=== PATIENT | female | born 1945 | race Caucasian/White ===

== ENCOUNTER 2020-05-23 17:24 | Emergency (ER) | payer MEDICARE, OTHER ==
[~2020-05-23] VITALS: Ht 165.1 cm; Wt 79.4 kg
[2020-05-23] MEDS ORDERED: RX-ALBUTEROL INHALER (VENTOLIN HFA) 18 GM IH STA (17:43)
[2020-05-23] MEDS ORDERED: BENZONATATE 100 MG (TESSALON) CAPSULE PO SCH (17:45)
[2020-05-23 17:47] LABS: BASOPHILS % (AUTO) 0 % (0-10); EOSINOPHILS % (AUTO) 0 % (0-10); HEMATOCRIT 36 % (35-52); HEMOGLOBIN 12.2 G/DL (11.5-16.0); LYMPHOCYTES # (AUTO) 1.6 X 10^3 (1.0-4.0); LYMPHOCYTES % (AUTO) 43 % (12-44); MEAN CORPUSCULAR HEMOGLOBIN 30 PG (25-34); MEAN CORPUSCULAR HGB CONC 34 G/DL (32-36); MEAN CORPUSCULAR VOLUME 89 FL (80-99); MEAN PLATELET VOLUME 9.2 FL (7.4-10.4); MONOCYTES # (AUTO) 0.3 X 10^3 (0.0-1.0); MONOCYTES % (AUTO) 7 % (0-12); NEUTROPHILS # (AUTO) 1.8 X 10^3 (1.8-7.8); NEUTROPHILS % (AUTO) 49 % (42-75); PLATELET COUNT 173 10^3/uL (130-400); WHITE BLOOD COUNT 3.7 10^3/uL (4.3-11.0)
--- NOTE | 2020-05-23 17:54 | Diagnostic Imaging Report ---
INDICATION: Cough, shortness of breath, COVID positive. EXAMINATION: Chest 05/23/2020 FINDINGS: Two views of the chest. Scattered patchy airspace opacities noted, right greater than left, consistent with the history of COVID. Heart and pulmonary vasculature normal. No effusions. No pneumothorax. IMPRESSION: 1. Scattered bilateral infiltrates Dictated by: Dictated on workstation # [id number]
[2020-05-23 18:09] LABS: CHLORIDE 100 MMOL/L (98-107); SODIUM 133 MMOL/L (135-145)
[2020-05-23 18:10] LABS: ALANINE AMINOTRANSFERASE 21 U/L (0-55); ALBUMIN 4.1 GM/DL (3.2-4.5); ALKALINE PHOSPHATASE 103 U/L (40-136); BILIRUBIN,TOTAL 0.4 MG/DL (0.1-1.0); BUN/CREATININE RATIO 21; CALCIUM 8.2 MG/DL (8.5-10.1); CARBON DIOXIDE 21 MMOL/L (21-32); CREATININE SERUM 1.19 MG/DL (0.60-1.30); GFR ESTIMATED 44; GLUCOSE 104 MG/DL (70-105)
[2020-05-23] MEDS ORDERED: NS IV 1000 ML 1,000 ML IV SCH (18:30)
[2020-05-23] MEDS ORDERED: DOXYCYCLINE 100 MG (VIBRAMYCIN) TABLET ONE (18:33)
--- NOTE | 2020-05-23 18:39 | ED Cough/URI ---
General Chief Complaint: Respiratory Problems Stated Complaint: SOA,COUGH Nursing Triage Note: Patient reports she began experiencing sinus drainage, cough and shortness of breath on Tuesday. States she was tested for COVID on Tuesday d/t her having symptoms and both she and her tested positive. She reports she was feeling better yesterday, then woke up this morning with increased drainage, cough, and shortness of breath. She reports she has frequent sinus infections that are usually helped with a steroid injection. Sepsis Screen: No Definite Risk Source: patient Exam Limitations: no limitations History of Present Illness Date Seen by Provider: May 23, 2020 Time Seen by Provider: 17:45 Initial Comments Patient is a 75 year old female known COVID positive patient who presents with worsening shortness of breath, cough and sinus drainage over the past few days. Patient was diagnosed 6 days ago after both her and her spouse develop symptoms. Patient does not have history of COPD, asthma, chronic airway disease, congestive heart failure, CAD or valvular heart disease. Denies palpitations, chest pain other than with cough. Denies increased leg pain or swelling. Reports generalized fatigue malaise but denies fever chills and sweats. No nausea vomiting, abdominal pain. No diarrhea constipation. No other acute symptoms or complaints. Timing/Duration: week, getting worse Severity/Quality: moderate, sputum Prior Episodes/Possible Cause: illness exposure Modifying Factors: Improves With Activity, Improves With Rest Associated Symptoms: muscle aches, nasal congestion, shortness of breath, sinus infection Allergies and Home Medications Allergies Coded Allergies: Meperidine (Verified Allergy, Unknown, 01/24/06) Patient Home Medication List Home Medication List Reviewed: Yes Review of Systems Review of Systems Constitutional: see HPI EENTM: see HPI Respiratory: see HPI Cardiovascular: see HPI Gastrointestinal: see HPI Genitourinary: see HPI Musculoskeletal: see HPI Skin: see HPI Psychiatric/Neurological: See HPI Hematologic/Lymphatic: See HPI Past Ruknskq-Ltpwrw-Nnzvip Hx Past Med/Social Hx: Reviewed Nursing Past Med/Soc Hx Patient Social History Alcohol Use: Denies Use Recreational Drug Use: No Smoking Status: Never a Smoker 2nd Hand Smoke Exposure: No Recent Foreign Travel: No Contact w/Someone Who Travel: No Recent Infectious Disease Expo: No Recent Hopitalizations: No Physical Abuse: No Sexual Abuse: No Mistreated: No Fear: No Seasonal Allergies Seasonal Allergies: Yes Past Medical History Surgeries: Yes (thyroid surgery, knee scope) Coronary Stent Respiratory: Yes (DVT x 3) Pulmonary Embolism Cardiac: Yes Coronary Artery Disease, Heart Attack Neurological: No Genitourinary: No Gastrointestinal: No Musculoskeletal: No Endocrine: No HEENT: No Cancer: No Psychosocial: No Integumentary: No Physical Exam Vital Signs - First Documented 05/23/20 17:30 Temp 37.1 Pulse 89 Resp 17 B/P (MAP) 121/77 (92) Pulse Ox 98 O2 Delivery Room Air Capillary Refill : Less Than 3 Seconds Height: '" Weight: lbs. oz. kg; 29.00 BMI Method: General Appearance: WD/WN Eyes: Bilateral Eye Normal Inspection, Bilateral Eye PERRL, Bilateral Eye EOMI HEENT: PERRL/EOMI, normal ENT inspection, pharynx normal Neck: non-tender, full range of motion, supple Respiratory: chest non-tender; No normal breath sounds; no respiratory distress, no accessory muscle use; No decreased breath sounds; rhonchi Cardiovascular: normal peripheral pulses, regular rate, rhythm Gastrointestinal: non tender, soft Extremities: normal range of motion, non-tender Neurologic/Psychiatric: public weigher II-XII nml as tested, no motor/sensory deficits, alert, oriented x 3 Focused Exam Sepsis Stage: Ruled Out Lactate Level 05/23/20 17:40: Lactic Acid Level 1.58 Lactic Acid Level Laboratory Tests Test 05/23/20 17:40 Lactic Acid Level 1.58 MMOL/L (0.50-2.00) Progress/Results/Core Measures Suspected Sepsis Recent Fever Within 48 Hours: No Infection Criteria Present: Documented Infection New/Unexplained Altered Menta: No Sepsis Screen: No Definite Risk SIRS Temperature: Pulse: 89 Respiratory Rate: 17 Laboratory Tests 05/23/20 17:40: White Blood Count 3.7L Blood Pressure 121 /77 Mean: 92 05/23/20 17:40: Lactic Acid Level 1.58 Laboratory Tests 05/23/20 17:40: Creatinine 1.19, Platelet Count 173, Total Bilirubin 0.4 Results/Orders Lab Results Laboratory Tests Test 05/23/20 17:40 Range/Units White Blood Count 3.7 L 4.3-11.0 10^3/uL Red Blood Count 4.08 L 4.35-5.85 10^6/uL Hemoglobin 12.2 11.5-16.0 G/DL Hematocrit 36 35-52 % Mean Corpuscular Volume 89 80-99 FL Mean Corpuscular Hemoglobin 30 25-34 PG Mean Corpuscular Hemoglobin Concent 34 32-36 G/DL Red Cell Distribution Width 13.2 10.0-14.5 % Platelet Count 173 130-400 10^3/uL Mean Platelet Volume 9.2 7.4-10.4 FL Immature Granulocyte % (Auto) 0 % Neutrophils (%) (Auto) 49 42-75 % Lymphocytes (%) (Auto) 43 12-44 % Monocytes (%) (Auto) 7 0-12 % Eosinophils (%) (Auto) 0 0-10 % Basophils (%) (Auto) 0 0-10 % Neutrophils # (Auto) 1.8 1.8-7.8 X 10^3 Lymphocytes # (Auto) 1.6 1.0-4.0 X 10^3 Monocytes # (Auto) 0.3 0.0-1.0 X 10^3 Eosinophils # (Auto) 0.0 0.0-0.3 10^3/uL Basophils # (Auto) 0.0 0.0-0.1 10^3/uL Immature Granulocyte # (Auto) 0.0 0.0-0.1 10^3/uL Sodium Level 133 L 135-145 MMOL/L Potassium Level 4.0 3.6-5.0 MMOL/L Chloride Level 100 98-107 MMOL/L Carbon Dioxide Level 21 21-32 MMOL/L Anion Gap 12 5-14 MMOL/L Blood Urea Nitrogen 25 H 7-18 MG/DL Creatinine 1.19 0.60-1.30 MG/DL Estimat Glomerular Filtration Rate 44 BUN/Creatinine Ratio 21 Glucose Level 104 70-105 MG/DL Lactic Acid Level 1.58 0.50-2.00 MMOL/L Calcium Level 8.2 L 8.5-10.1 MG/DL Corrected Calcium 8.1 L 8.5-10.1 MG/DL Total Bilirubin 0.4 0.1-1.0 MG/DL Aspartate Amino Transf (AST/SGOT) 36 H 5-34 U/L Alanine Aminotransferase (ALT/SGPT) 21 0-55 U/L Alkaline Phosphatase 103 40-136 U/L Troponin I < 0.30 <0.30 NG/ML C-Reactive Protein 1.23 H <0.50 MG/DL Pro-B-Type Natriuretic Peptide 112.3 H <75.0 PG/ML Total Protein 7.0 6.4-8.2 GM/DL Albumin 4.1 3.2-4.5 GM/DL My Orders Orders - MIKEY SMITH DO Cbc With Automated Diff (05/23/20 17:28) Comprehensive Metabolic Panel (05/23/20 17:28) Chest 1 View Ap/Pa Only (05/23/20 17:28) Troponin I Fs (05/23/20 17:28) Probnp Fs (05/23/20 17:28) Lactic Acid Analyzer (05/23/20 17:28) Crp Fs (05/23/20 17:) Ekg Tracing (05/23/20 17:29) Rx-Albuterol Inhaler (Rx-Ventolin Hfa) (05/23/20 17:43) Benzonatate Capsule (Tessalon Perles) (05/23/20 17:45) Dexamethasone Injection (Decadron Inje (05/23/20 18:00) Ns Iv 1000 Ml (Sodium Chloride 0.9%) (05/23/20 18:30) Doxycycline Hyclate Tablet (Vibramycin T (05/24/20 07:00) Medications Given in ED Current Medications Medications Dose Ordered Sig/Olu Route Start Time Stop Time Status Last Admin Dose Admin Dexamethasone Sodium Phosphate 10 mg ONCE ONCE IV 05/23/20 18:00 05/23/20 18:01 DC 05/23/20 17:59 10 MG Vital Signs/I&O 05/23/20 17:30 Temp 37.1 Pulse 89 Resp 17 B/P (MAP) 121/77 (92) Pulse Ox 98 O2 Delivery Room Air Capillary Refill : Less Than 3 Seconds Blood Pressure Mean: 92 Departure Communication (Admissions) EKG: Sinus rhythm, no acute ST-T wave changes. Chest x-ray: Bilateral patchy infiltrates. Lab, imaging, and EKG reviewed. Patient's symptoms are consistent with COVID . Chest x-ray reveals bilateral infiltrates. Patient's nonrespiratory distress and is not hypoxic. Albuterol, Tessalon Perles and IV fluids given with significant improvement. Vital signs remained stable throughout ED encounter. Antibiotics prescribed. Will continue supportive chair with watchful waiting and close PCP f ollow-up. Return precautions reviewed. Patient verbalizes understanding and agreement discharge instructions prior to departure. Impression Primary Impression: COVID-19 Additional Impression: Acute infection of sinus Disposition: 01 HOME, SELF-CARE Condition: Stable Departure-Patient Inst. Decision time for Depature: 18:40 Patient Instructions: Coronavirus Disease 2019 (COVID-19) (DC), Sinusitis in Adults Add. Discharge Instructions: Please use albuterol inhaler as directed and take newly prescribed medications as prescribed. Monitor oxygen levels closely with use of retail digital pulse oximetry. Return to the ED for persistent oxygen levels lower than 90 worsening shortness of breath. Otherwise contact your PCP early next week for further directions regarding management. Return to the ED if new or worsening symptoms. All discharge instructions reviewed with patient and/or family. Voiced understanding. Scripts Doxycycline Hyclate (Doxycycline Hyclate) 100 Mg Tablet 100 MG PO BID, #20 TAB 0 Refills Prov: MIKEY SMITH DO 05/23/20 Benzonatate (TESSALON PERLES) 100 Mg Capsule 200 MG PO TID, #20 CAP Prov: MIKEY SMITH DO 05/23/20 MIKEY SMITH DO May 23, 2020 18:39
[2020-05-23] MEDS ORDERED: DOXY100T2 PO (18:42)
[2020-05-23] MEDS ORDERED: BENZ100C18 PO (18:42)
[2020-05-23 19:27] VITALS: BP 139/97
[2020-05-24] MEDS ORDERED: DOXYCYCLINE 100 MG (VIBRAMYCIN) TABLET PO SCH (07:00)
== END 2020-05-23 19:27 | disposition home or self-care (01) ==
LOC: EDUNIT# 17:24 → ER FS 17:25
DX: U07.1 COVID-19 (principal); J01.90 Acute sinusitis, unspecified; I25.2 Old myocardial infarction; Z95.5 Presence of coronary angioplasty implant and graft; Z88.5 Allergy status to narcotic agent
CPT/HCPCS: 36415; 71045; 80053; 83605; 83880; 84484; 85025; 86141; 93005; 96361; 96374

== ENCOUNTER 2020-05-25 19:21 | Inpatient (IN) | payer MEDICARE, OTHER ==
[~2020-05-25] VITALS: Ht 167 cm; Wt 78.9 kg
[~2020-05-25 19:21] MED LIST: BENZ100C18 PO; DOXY100T2 PO
[2020-05-25 19:54] LABS: BASOPHILS % (AUTO) 0 % (0-10); EOSINOPHILS % (AUTO) 0 % (0-10); HEMATOCRIT 37 % (35-52); HEMOGLOBIN 11.9 g/dL (11.5-16.0); LYMPHOCYTES # (AUTO) 0.7 10^3/uL (1.0-4.0); LYMPHOCYTES % (AUTO) 12 % (12-44); MEAN CORPUSCULAR HEMOGLOBIN 30 pg (25-34); MEAN CORPUSCULAR HGB CONC 32 g/dL (32-36); MEAN CORPUSCULAR VOLUME 92 fL (80-99); MEAN PLATELET VOLUME 9.2 fL (9.0-12.2); MONOCYTES # (AUTO) 0.4 10^3/uL (0.0-1.0); MONOCYTES % (AUTO) 7 % (0-12); NEUTROPHILS # (AUTO) 4.6 10^3/uL (1.8-7.8); NEUTROPHILS % (AUTO) 80 % (42-75); PLATELET COUNT 176 10^3/uL (130-400); WHITE BLOOD COUNT 5.7 10^3/uL (4.3-11.0)
[2020-05-25 20:00] LABS: INR 3.3 (0.8-1.4)
[2020-05-25] MEDS ORDERED: ACETAMINOPHEN 500 MG TAB (TYLENOL) PO ONE (20:00)
[2020-05-25] MEDS ORDERED: BENZONATATE 100 MG (TESSALON) CAPSULE PO ONE (20:00)
[2020-05-25] MEDS ORDERED: ONDANSETRON 4 MG/2 ML (SDV) Z0FRAN IVP ONE (20:00)
[2020-05-25 20:06] LABS: ALBUMIN 3.8 GM/DL (3.2-4.5); BILIRUBIN,TOTAL 0.6 MG/DL (0.1-1.0); CALCIUM 8.1 MG/DL (8.5-10.1); CREATININE SERUM 1.27 MG/DL (0.60-1.30); POTASSIUM 4.5 MMOL/L (3.6-5.0); TOTAL PROTEIN 6.8 GM/DL (6.4-8.2)
--- NOTE | 2020-05-25 20:26 | NUR ---
Patients daughter Danuta [phone]
--- NOTE | 2020-05-25 20:31 | NUR ---
Deyvi Ayala [phone] -Son
--- NOTE | 2020-05-25 20:37 | Diagnostic Imaging Report ---
INDICATION: Increasing shortness of breath. EXAMINATION: Portable erect AP chest at 8:24 p.m. FINDINGS: The heart size is within normal limits and stable when compared to 05/23/2020. The previous study did show faint scattered alveolar/interstitial infiltrates involving both lungs. On this study, there are areas of increased density in both lungs which do seem more prominent than on the prior exam. Most likely this is due to worsening pneumonia/atelectasis. There is still no significant pleural effusion identified. The mediastinum is not widened. The osseous structures are intact. IMPRESSION: The appearance of the chest has worsened since the prior study as there is greater involvement of both lungs by pneumonia/atelectasis. A follow up exam would be recommended for continued evaluation. Dictated by: Dictated on workstation # [id number]
--- NOTE | 2020-05-25 20:51 | ED General ---
General Chief Complaint: General Problems/Pain Stated Complaint: COVID/WEAKNESS/NAUSEA/DIARRHEA Nursing Triage Note: Patient tested positive for covid on 05/17/20. She states she was diagnosed with pneumonia in ft check on tuesday. Patient states since that time she has been feeling as though she is going to pass out and has been having diarrhea. She has been utilizing her husbands oxygen at home and states it helps her breathe better. She c/o of a headache and nausea at this time. Nursing Sepsis Screen: No Definite Risk Source of Information: Patient Exam Limitations: No Limitations History of Present Illness Date Seen by Provider: May 25, 2020 Time Seen by Provider: 19:25 Initial Comments This 75-year-old woman with COVID-19 presents to the emergency room with COVID- 19 symptoms for about 1 week. She has been struggling with nausea, diarrhea, weakness, dyspnea, and persistent cough. She is having a hard time getting by at home. Her just recently returned home from an admission at [facility] for COVID-19. She feels like she is just not making it at home. She has been using her 's oxygen at home because it improves her cough. She has not been hypoxic yet. She is presently on warfarin therapy because of "blood clots". She is febrile. Patient's son later mentioned she may have "passed out". He is uncertain if there was actual loss of consciousness. Allergies and Home Medications Allergies Coded Allergies: meperidine (Verified Allergy, Unknown, 01/24/06) Home Medications Benzonatate 100 Mg Capsule, 200 MG PO TID Prescribed by: MIKEY SMITH on 05/23/201841 Doxycycline Hyclate 100 Mg Tablet, 100 MG PO BID Prescribed by: MIKEY SMITH on 05/23/20 184 Patient Home Medication List Home Medication List Reviewed: Yes Review of Systems Review of Systems Constitutional: see HPI EENTM: other (Sinus congestion) Respiratory: see HPI Cardiovascular: no symptoms reported Gastrointestinal: see HPI Genitourinary: no symptoms reported : No Musculoskeletal: no symptoms reported Skin: no symptoms reported Psychiatric/Neurological: No Symptoms Reported Hematologic/Lymphatic: See HPI Immunological/Allergic: no symptoms reported Past Lbgvrfp-Yccvwc-Djazzf Hx Past Med/Social Hx: Reviewed Nursing Past Med/Soc Hx Patient Social History Alcohol Use: Denies Use Recreational Drug Use: No Smoking Status: Never a Smoker 2nd Hand Smoke Exposure: No Recent Foreign Travel: No Contact w/Someone Who Travel: No Recent Infectious Disease Expo: No Recent Hopitalizations: No Seasonal Allergies Seasonal Allergies: Yes Past Medical History Surgeries: Yes (thyroid surgery, knee scope) Coronary Stent Respiratory: Yes (DVT x 3) Pulmonary Embolism Cardiac: Yes Coronary Artery Disease, Deep Vein Thrombosis, Heart Attack Neurological: No Reproductive Disorders: No Genitourinary: No Gastrointestinal: No Musculoskeletal: No Endocrine: No HEENT: No Cancer: No Psychosocial: No Integumentary: No Physical Exam Vital Signs Vital Signs - First Documented 05/25/20 19:37 FiO2 100 Capillary Refill : Less Than 3 Seconds Height, Weight, BMI Height: '" Weight: lbs. oz. kg; 27.00 BMI Method: General Appearance: No Apparent Distress, WD/WN HEENT: PERRL/EOMI, Normal ENT Inspection Neck: Normal Inspection Respiratory: Lungs Clear, Normal Breath Sounds, No Accessory Muscle Use, No Respiratory Distress Cardiovascular: Regular Rate, Rhythm, No Edema, No Murmur Gastrointestinal: Normal Bowel Sounds, Non Tender, Soft Extremity: Normal Inspection, No Pedal Edema Neurologic/Psychiatric: Alert, Oriented x3, No Motor/Sensory Deficits, Normal Mood/Affect, graphite grinder II-XII Norm as Tested Skin: Normal Color, Warm/Dry Focused Exam Lactate Level 05/25/20 19:38: Lactic Acid Level 1.13 Lactic Acid Level Progress/Results/Core Measures Suspected Sepsis Recent Fever Within 48 Hours: Yes Infection Criteria Present: Documented Infection New/Unexplained Altered Menta: No Sepsis Screen: No Definite Risk SIRS Temperature: Pulse: 90 Respiratory Rate: 18 Laboratory Tests 05/25/20 19:38: White Blood Count 5.7 05/26/20 04:55: Blood Pressure 119 /74 Mean: 89 05/25/20 19:38: Lactic Acid Level 1.13 Laboratory Tests 05/25/20 19:38: Creatinine 1.27, INR Comment 3.3H, Platelet Count 176, Total Bilirubin 0.6 05/26/20 04:55: Results/Orders Lab Results Laboratory Tests Test 05/25/20 19:38 05/25/20 22:25 05/26/20 04:55 Range/Units White Blood Count 5.7 4.3-11.0 10^3/uL Red Blood Count 4.01 3.80-5.11 10^6/uL Hemoglobin 11.9 11.5-16.0 g/dL Hematocrit 37 35-52 % Mean Corpuscular Volume 92 80-99 fL Mean Corpuscular Hemoglobin 30 25-34 pg Mean Corpuscular Hemoglobin Concent 32 32-36 g/dL Red Cell Distribution Width 13.1 10.0-14.5 % Platelet Count 176 130-400 10^3/uL Mean Platelet Volume 9.2 9.0-12.2 fL Immature Granulocyte % (Auto) 0 % Neutrophils (%) (Auto) 80 H 42-75 % Lymphocytes (%) (Auto) 12 12-44 % Monocytes (%) (Auto) 7 0-12 % Eosinophils (%) (Auto) 0 0-10 % Basophils (%) (Auto) 0 0-10 % Neutrophils # (Auto) 4.6 1.8-7.8 10^3/uL Lymphocytes # (Auto) 0.7 L 1.0-4.0 10^3/uL Monocytes # (Auto) 0.4 0.0-1.0 10^3/uL Eosinophils # (Auto) 0.0 0.0-0.3 10^3/uL Basophils # (Auto) 0.0 0.0-0.1 10^3/uL Immature Granulocyte # (Auto) 0.0 0.0-0.1 10^3/uL Prothrombin Time 34.0 H 12.2-14.7 SEC INR Comment 3.3 H 0.8-1.4 Activated Partial Thromboplast Time 60 H 24-35 SEC Sodium Level 136 135-145 MMOL/L Potassium Level 4.5 3.6-5.0 MMOL/L Chloride Level 102 98-107 MMOL/L Carbon Dioxide Level 21 21-32 MMOL/L Anion Gap 13 5-14 MMOL/L Blood Urea Nitrogen 25 H 7-18 MG/DL Creatinine 1.27 0.60-1.30 MG/DL Estimat Glomerular Filtration Rate 41 BUN/Creatinine Ratio 20 Glucose Level 108 H 70-105 MG/DL Lactic Acid Level 1.13 0.50-2.00 MMOL/L Calcium Level 8.1 L 8.5-10.1 MG/DL Corrected Calcium 8.3 L 8.5-10.1 MG/DL Total Bilirubin 0.6 0.1-1.0 MG/DL Aspartate Amino Transf (AST/SGOT) 39 H 5-34 U/L Alanine Aminotransferase (ALT/SGPT) 25 0-55 U/L Alkaline Phosphatase 96 40-136 U/L Lactate Dehydrogenase 366 H 125-220 U/L C-Reactive Protein High Sensitivity 3.38 H 0.00-0.50 MG/DL Total Protein 6.8 6.4-8.2 GM/DL Albumin 3.8 3.2-4.5 GM/DL Procalcitonin 0.04 <0.10 NG/ML Urine Color YELLOW Urine Clarity SL CLOUDY Urine pH 5.5 5-9 Urine Specific [employer] 1.015 L 1.016-1.022 Urine Protein TRACE H NEGATIVE Urine Glucose (UA) NEGATIVE NEGATIVE Urine Ketones NEGATIVE NEGATIVE Urine Nitrite NEGATIVE NEGATIVE Urine Bilirubin NEGATIVE NEGATIVE Urine Urobilinogen 0.2 < = 1.0 MG/DL Urine Leukocyte Esterase NEGATIVE NEGATIVE Urine RBC (Auto) TRACE-I NEGATIVE Urine RBC 50-100 H /HPF Urine WBC 0-2 /HPF Urine Squamous Epithelial Cells 2-5 /HPF Urine Crystals NONE /LPF Urine Bacteria FEW H /HPF Urine Casts NONE /LPF Urine Mucus NEGATIVE /LPF Urine Culture Indicated NO Micro Results Microbiology 05/25/20 Influenza Types A,B Antigen (DOYLE) - Final, Complete My Orders Orders - PATEL CLIFFORD MD Acetaminophen Tablet (Tylenol Tablet) (05/25/20 20:00) Ondansetron Injection (Zofran Injectio (05/25/20 20:00) Benzonatate Capsule (Tessalon Perles) (05/25/20 20:00) Cbc With Automated Diff (05/25/20 19:48) Comprehensive Metabolic Panel (05/25/20 19:48) Blood Culture (05/25/20 19:48) Sputum Culture (05/25/20 19:48) Urinalysis (05/25/20 19:48) Urine Culture (05/25/20 19:48) Protime With Inr (05/25/20 19:48) Partial Thromboplastin Time (05/25/20 19:48) Chest 1 View, Ap/Pa Only (05/25/20 19:48) Ed Iv/Invasive Line Start (05/25/20 19:48) Ed Iv/Invasive Line Start (05/25/20 19:48) Vital Signs Adult Sepsis Patie Q15M (05/25/20 19:48) O2 (05/25/20 19:48) Remove Rings In Anticipation O (05/25/20 19:48) Lactic Acid Analyzer (05/25/20 19:48) Influenza A And B Antigens (05/25/20 19:48) Procalcitonin (Pct) (05/25/20 20:35) Hs C Reactive Protein (05/25/20 20:35) LDH (05/25/20 20:35) Dexamethasone Injection (Decadron Inje (05/25/20 21:15) Medications Given in ED Current Medications Medications Dose Ordered Sig/Olu Route Start Time Stop Time Status Last Admin Dose Admin Acetaminophen 1,000 mg ONCE ONCE PO 05/25/20 20:00 05/25/20 20:01 DC 05/25/20 20:05 1,000 MG Benzonatate 200 mg ONCE ONCE PO 05/25/20 20:00 05/25/20 20:01 DC 05/25/20 20:05 200 MG Dexamethasone Sodium Phosphate 6 mg ONCE ONCE IV 05/25/20 21:15 05/25/20 21:16 DC 05/25/20 22:09 6 MG Ondansetron HCl 8 mg ONCE ONCE IVP 05/25/20 20:00 05/25/20 20:01 DC 05/25/20 20:05 8 MG Vital Signs/I&O 05/25/20 05/25/20 05/25/20 05/25/20 19:37 19:37 19:37 20:05 Temp 38.7 38.7 38.7 Pulse 90 90 Resp 18 B/P (MAP) 119/74 (89) 119/74 Pulse Ox 98 98 98 O2 Delivery Nasal Cannula Nasal Cannula Nasal Cannula O2 Flow Rate 2.00 2.00 2.00 100.00 FiO2 100 05/25/20 05/25/20 05/25/20 05/25/20 22:10 22:33 22:42 22:49 Temp 38.7 37.0 37.0 Pulse 59 73 73 75 Resp 16 24 24 B/P (MAP) 108/66 (89) 124/55 124/55 (78) Pulse Ox 98 97 97 O2 Delivery Nasal Cannula Nasal Cannula Nasal Cannula O2 Flow Rate 2.00 2.00 2.00 2.00 05/25/20 05/25/20 23:20 23:46 Temp 36.8 Pulse 68 Resp 21 B/P (MAP) 106/53 (70) Pulse Ox 94 O2 Delivery Nasal Cannula Nasal Cannula O2 Flow Rate 2.00 2.00 05/26/20 00:00 Intake Total 200 ml Balance 200 ml Capillary Refill : Less Than 3 Seconds Blood Pressure Mean: 89 Progress Note : Progress Note Patient was treated with a liter of IV fluid as started by EMS. Tessalon Perles was given for cough. She was continued on 2 L nasal cannula for comfort and shortness of breath/cough. Zofran was given for nausea. Dexamethasone will be administered. CRP was low and pro calcitonin was normal. We will therefore not be treating with antibiotics. INR is slightly supratherapeutic. We will hold warfarin for tonight. I did discuss CODE STATUS with the patient. She has some uncertainty about this at this time. We will stay full code for admission orders until she makes a more definitive decision. ECG Initial ECG Impression Date: May 25, 2020 Diagnostic Imaging Diagonstic Imaging: Xray Plain Films/CT/US/NM/MRI: chest Comments Chest x-ray viewed by me and report reviewed. Compared with prior. See report below: NAME: THA ALEXANDER [facility] REC#: [id number] PT STATUS: REG ER : 1945 PHYSICIAN: PATEL CLIFFORD MD ADMIT DATE: 05/25/20/ER Draft Date of Exam:05/25/20 CHEST 1 VIEW, AP/PA ONLY INDICATION: Increasing shortness of breath. EXAMINATION: Portable erect AP chest at 8:24 p.m. FINDINGS: The heart size is within normal limits and stable when compared to 05/23/2020. The previous study did show faint scattered alveolar/interstitial infiltrates involving both lungs. On this study, there are areas of increased density in both lungs which do seem more prominent than on the prior exam. Most likely this is due to worsening pneumonia/atelectasis. There is still no significant pleural effusion identified. The mediastinum is not widened. The osseous structures are intact. IMPRESSION: The appearance of the chest has worsened since the prior study as there is greater involvement of both lungs by pneumonia/atelectasis. A follow up exam would be recommended for continued evaluation. Dictated on workstation # [id number] Dict: 05/25/202025 Trans: 05/25/202034 [id number] Interpreted by: LESTER PETERSON MD Departure Communication (Admissions) Time/Spoke to Admitting Phy: 21:00 Case was discussed with Dr. Preciado on behalf of Dr. Combs. Impression Primary Impression: COVID-19 Additional Impressions: Nausea Diarrhea Qualified Codes: R19.7 - Diarrhea, unspecified Dyspnea Qualified Codes: R06.00 - Dyspnea, unspecified Generalized weakness Disposition: ADMITTED INPATIENT Condition: Improved Admissions Decision to Admit Reason: Admit from ER (General) Decision to Admit/Date: May 25, 2020 Time/Decision to Admit Time: 19:35 Departure-Patient Inst. Referrals: TEETEE HOOKS MD (PCP/Family) Primary Care Physician PATEL CLIFFORD MD May 25, 2020 20:51
--- NOTE | 2020-05-25 22:25 | NUR ---
THA ALEXANDER admitted to room 422-1, with an admitting diagnosis of COVID 19, NAUSEA, DIARRHEA, DABILITY , on 05/25/20 from ED via , accompanied by STAFF. THA ALEXANDER introduced to surroundings, call light, bed controls, phone, TV, temperature control, lights, meal times, smoking policy, visitor policy, side rail policy, bathrooms and showers. Patient Rights given to patient in the handbook.THA ALEXANDER verbalizes understanding that [facility] is not responsible for the loss or damage to any personal effects or valuables that are kept in the patients posession during their hospitalization.
[2020-05-25 22:33] VITALS: BP 124/55
[2020-05-25 22:34] LABS: BILIRUBIN,URINE NEGATIVE (NEGATIVE); CLARITY,URINE SL CLOUDY; COLOR,URINE YELLOW; GLUCOSE, URINE (UA) NEGATIVE (NEGATIVE); KETONES,URINE NEGATIVE (NEGATIVE); LEUKOCYTE ESTERASE ,URINE NEGATIVE (NEGATIVE); NITRITE,URINE NEGATIVE (NEGATIVE); PH,URINE 5.5 (5-9); PROTEIN,URINE TRACE (NEGATIVE)
[2020-05-25] MEDS ORDERED: LACTATED RINGERS 1,000 ML IV ONE (22:38)
[2020-05-25 22:42] VITALS: BP 124/55
[2020-05-25 22:47] LABS: RBC,URINE 50-100 /HPF
[2020-05-25 22:48] LABS: BACTERIA,URINE FEW /HPF; WBC,URINE 0-2 /HPF
[2020-05-25] MEDS ORDERED: ONDANSETRON 4 MG/2 ML (SDV) Z0FRAN IVP PRN (23:00)
[2020-05-25] MEDS: LACTATED RINGERS 1,000 ML IV SCH (23:29)
[2020-05-25 23:46] VITALS: BP 106/53
[2020-05-26] VITALS (8 sets, daily range): BP systolic 112–172; BP diastolic 61–79
[2020-05-26 05:08] LABS: BASOPHILS % (AUTO) 0 % (0-10); EOSINOPHILS % (AUTO) 0 % (0-10); HEMATOCRIT 35 % (35-52); HEMOGLOBIN 11.2 g/dL (11.5-16.0); LYMPHOCYTES # (AUTO) 0.6 10^3/uL (1.0-4.0); LYMPHOCYTES % (AUTO) 17 % (12-44); MEAN CORPUSCULAR HEMOGLOBIN 30 pg (25-34); MEAN CORPUSCULAR HGB CONC 32 g/dL (32-36); MEAN CORPUSCULAR VOLUME 93 fL (80-99); MEAN PLATELET VOLUME 9.6 fL (9.0-12.2); MONOCYTES # (AUTO) 0.1 10^3/uL (0.0-1.0); MONOCYTES % (AUTO) 4 % (0-12); NEUTROPHILS # (AUTO) 2.6 10^3/uL (1.8-7.8); NEUTROPHILS % (AUTO) 79 % (42-75); PLATELET COUNT 158 10^3/uL (130-400); WHITE BLOOD COUNT 3.3 10^3/uL (4.3-11.0)
[2020-05-26 05:18] LABS: ALBUMIN 3.5 GM/DL (3.2-4.5); POTASSIUM 4.6 MMOL/L (3.6-5.0)
[2020-05-26 05:19] LABS: CALCIUM 7.7 MG/DL (8.5-10.1)
[2020-05-26 05:20] LABS: TOTAL PROTEIN 6.3 GM/DL (6.4-8.2)
[2020-05-26 05:22] LABS: BILIRUBIN,TOTAL 0.6 MG/DL (0.1-1.0)
[2020-05-26 05:24] LABS: CREATININE SERUM 1.13 MG/DL (0.60-1.30)
[2020-05-26 05:51] LABS: PROTHROMBIN TIME PATIENT 31.7 SEC (12.2-14.7)
[2020-05-26] MEDS: LACTATED RINGERS 1,000 ML IV SCH ×2 (06:49→15:43)
[2020-05-26] MEDS: ACETAMINOPHEN 500 MG TAB (TYLENOL) PO PRN (08:50)
[2020-05-26] MEDS: BENZONATATE 100 MG (TESSALON) CAPSULE PO PRN ×2 (08:51→20:58)
[2020-05-26] MEDS: ENOXAPARIN 40 MG/0.4 ML (LOVENOX) SYR SC SCH (08:53)
[2020-05-26] MEDS ORDERED: REMDESIVIR INJ 200 MG in NS (IVPB) 210 ML IV ONE ×2 (10:45→12:00)
[2020-05-26] MEDS ORDERED: REMDESIVIR INJ 100 MG in NS (IVPB) 230 ML IV SCH (10:45)
--- NOTE | 2020-05-26 10:58 | History & Physical-Hospitalist ---
History of Present Illness HPI/Chief Complaint CC: SOB HPI: This is a 75yoWF who presented with Covid symptoms for one week. Pt was found to be hypoxic with all the signs of Covid related issues so she was deemed stable for admission to the floor. Pt will be started on Remdesivir and convalescent plasma, along with Decadron and she will be monitored closely for any type of respiratory compromise. Date Seen 05/26/20 Time Seen by a Provider: 10:00 Attending Physician Anaid Combs Jay L MD Referring Physician Date of Admission May 25, 2020 at 21:38 Home Medications & Allergies Home Medications Reviewed patient Home Medication Reconciliation performed by pharmacy medication reconciliations visitor services technician and/or nursing. Patients Allergies have been reviewed. Allergies Allergies Coded Allergies meperidine (Verified Allergy, Unknown, 01/24/06) Past Whosrev-Kvoxfz-Rqyumb Hx Past Med/Social Hx: Reviewed Nursing Past Med/Soc Hx, Reviewed and Corrections made Patient Social History Marrital Status: Employed/Student: retired Alcohol Use: Denies Use Recreational Drug Use: No Smoking Status: Never a Smoker 2nd Hand Smoke Exposure: No Recent Foreign Travel: No Contact w/other who traveled: No Recent Hopitalizations: No Recent Infectious Disease Expo: Yes (COVID) Immunizations Up To Date Date of Influenza Vaccine: Apr 03, 2020 Seasonal Allergies Seasonal Allergies: Yes Past Medical History Surgeries: Coronary Stent Cardiac: Coronary Artery Disease, Deep Vein Thrombosis, Heart Attack Reproductive: No Family History Patient reports no known family medical history. Review of Systems Constitutional: see HPI, dizziness, malaise, weakness Respiratory: cough, dyspnea on exertion Physical Exam Physical Exam Vital Signs Vital Signs - First Documented 05/25/20 19:37 FiO2 100 Capillary Refill : Less Than 3 Seconds Height, Weight, BMI Height: '" Weight: lbs. oz. kg; 28.29 BMI Method: General Appearance: No Apparent Distress, Anxious Eyes: Right Eye Normal Inspection, Right Eye PERRL HEENT: PERRL/EOMI, Normal ENT Inspection, Pharynx Normal, Moist Mucous Me mbranes Neck: Full Range of Motion, Normal Inspection, Non Tender Respiratory: Chest Non Tender, Lungs Clear, Normal Breath Sounds, No Accessory Muscle Use, No Respiratory Distress Cardiovascular: Regular Rate, Rhythm, No Edema, No Gallop, No JVD, No Murmur, Normal Peripheral Pulses Gastrointestinal: Normal Bowel Sounds, No Organomegaly, No Pulsatile Mass, Non Tender, Soft Back: Normal Inspection, No CVA Tenderness, No Vertebral Tenderness Extremity: Normal Capillary Refill, Normal Inspection, Normal Range of Motion, Non Tender, No Calf Tenderness, No Pedal Edema Neurologic/Psychiatric: Alert, Oriented x3, No Motor/Sensory Deficits, Normal Mood/Affect Skin: Normal Color, Warm/Dry Lymphatic: No Adenopathy Results Results/Procedures Labs Laboratory Tests 05/25/20 19:38 05/26/20 04:55 Patient resulted labs reviewed. Assessment/Plan Admission Diagnosis Assessment: COVID-19 PNA Hypoxia CAD Previous DVT's Hypothyroidism Coumadin treatment now supratherapeutic Acute UTI Plan: COVID treatment O2 PPE use Monitor closely Monitor INR Rocephin for UTI empiric Admission Status: Inpatient Order (span 2 midnights) Reason for Inpatient Admission: COVID 19 Diagnosis/Problems Diagnosis/Problems (1) COVID-19 (2) UTI (urinary tract infection) (3) Warfarin anticoagulation (4) CAD (coronary artery disease) (5) Acquired hypothyroidism (6) Dyspnea Status: Acute Qualifiers: Dyspnea type: unspecified Qualified Codes: R06.00 - Dyspnea, unspecified (7) Generalized weakness Status: Acute (8) Diarrhea Qualifiers: Diarrhea type: unspecified type Qualified Codes: R19.7 - Diarrhea, unspecified (9) Debility Clinical Quality Measures DVT/VTE Risk/Contraindication: Risk Factor Score Per Nursin RFS Level Per Nursing on Admit: 4+=Very High ANAID COMBS DO May 26, 2020 10:58
[2020-05-26] MEDS ORDERED: LOSA25TA41 PO (14:57)
[2020-05-26] MEDS ORDERED: BENZ-36 PO (14:57)
[2020-05-26] MEDS ORDERED: [UNRECOGNIZED DRUG - CODE] PO (14:57)
[2020-05-26] MEDS ORDERED: OMG1KC PO (14:57)
[2020-05-26] MEDS ORDERED: WARF-48 PO (14:57)
[2020-05-26] MEDS ORDERED: LEVO75TA6 PO (14:57)
[2020-05-26] MEDS ORDERED: DOXY100T2 PO (14:58)
--- NOTE | 2020-05-26 15:14 | NUR ---
I SPOKE WITH THE PATIENT, XANDER IN [facility] AND WENT THROUGH THE EXTERNAL MED HISTORY TO COMPLETE THIS MED REC. NEW FILL DATES FROM [facility]: WARFARIN 5MG 04/28/2020#DS LEVOTHYROXINE 75MCH 05/02/2020 #DS OTC: TYLENOL SINUS FISH OIL
[2020-05-26] MEDS ORDERED: RT-ALBUTEROL INHALER HFA (VENTOLIN HFA) 18 GM IH PRN (17:30)
[2020-05-26] MEDS: RT-ALBUTEROL INHALER HFA (VENTOLIN HFA) 18 GM IH SCH (22:46)
[2020-05-27 00:21] VITALS: BP 142/58
[2020-05-27] MEDS: LACTATED RINGERS 1,000 ML IV SCH ×4 (01:27→23:00)
[2020-05-27] MEDS: RT-ALBUTEROL INHALER HFA (VENTOLIN HFA) 18 GM IH SCH ×4 (02:01→18:24)
[2020-05-27 03:34] VITALS: BP 140/65
[2020-05-27] MEDS: BENZONATATE 100 MG (TESSALON) CAPSULE PO PRN ×2 (05:26→20:45)
[2020-05-27 05:44] LABS: BASOPHILS % (AUTO) 0 % (0-10); EOSINOPHILS % (AUTO) 0 % (0-10); HEMATOCRIT 31 % (35-52); HEMOGLOBIN 10.5 g/dL (11.5-16.0); LYMPHOCYTES # (AUTO) 0.7 10^3/uL (1.0-4.0); LYMPHOCYTES % (AUTO) 11 % (12-44); MEAN CORPUSCULAR HEMOGLOBIN 30 pg (25-34); MEAN CORPUSCULAR HGB CONC 34 g/dL (32-36); MEAN CORPUSCULAR VOLUME 90 fL (80-99); MEAN PLATELET VOLUME 9.8 fL (9.0-12.2); MONOCYTES # (AUTO) 0.5 10^3/uL (0.0-1.0); MONOCYTES % (AUTO) 8 % (0-12); NEUTROPHILS # (AUTO) 5.1 10^3/uL (1.8-7.8); NEUTROPHILS % (AUTO) 81 % (42-75); PLATELET COUNT 204 10^3/uL (130-400); WHITE BLOOD COUNT 6.4 10^3/uL (4.3-11.0)
[2020-05-27 06:00] LABS: INR 2.8 (0.8-1.4); PROTHROMBIN TIME PATIENT 29.4 SEC (12.2-14.7)
[2020-05-27 06:01] LABS: ALBUMIN 3.3 GM/DL (3.2-4.5)
[2020-05-27 06:02] LABS: CALCIUM 7.8 MG/DL (8.5-10.1)
[2020-05-27 06:03] LABS: TOTAL PROTEIN 5.8 GM/DL (6.4-8.2)
[2020-05-27 06:05] LABS: BILIRUBIN,TOTAL 0.5 MG/DL (0.1-1.0)
[2020-05-27 06:07] LABS: CREATININE SERUM 0.91 MG/DL (0.60-1.30)
[2020-05-27] MEDS: cefTRIAXone FOR IV USE 1,000 MG in WATER (STERILE) FOR INJECTION 10 ML IV SCH (06:13)
[2020-05-27] MEDS: LEVOTHYROXINE 75 MCG (LEVOTHROID) TABLET PO SCH (06:43)
[2020-05-27 07:52] VITALS: BP 127/58
[2020-05-27] MEDS: LOSARTAN 25 MG (COZAAR) TAB PO SCH (09:33)
[2020-05-27] MEDS: ENOXAPARIN 40 MG/0.4 ML (LOVENOX) SYR SC SCH (09:34)
--- NOTE | 2020-05-27 10:36 | Progress Note - Hospitalist ---
Subjective HPI/CC On Admission Date Seen by Provider: May 27, 2020 Time Seen by Provider: 10:00 CC: SOB HPI: This is a 75yoWF who presented with Covid symptoms for one week. Pt was found to be hypoxic with all the signs of Covid related issues so she was deemed stable for admission to the floor. Pt will be started on Remdesivir and convalescent plasma, along with Decadron and she will be monitored closely for any type of respiratory compromise. Subjective/Events-last exam Pt doing a lot better In a shower right now with oxygen Bowels not moving very much after diarrhea so will start a stool softener Overall doing pretty well Labs remain stable Coumadin will be restarted of her home dose since her INR is 2.8 Tolerating Covid treatment Review of Systems General: Fatigue, Malaise Focused Exam Lactate Level 05/25/20 19:38: Lactic Acid Level 1.13 Objective Exam Vital Signs Vital Signs Date Time Temp Pulse Resp B/P (MAP) Pulse Ox O2 Delivery O2 Flow Rate FiO2 05/28/20 00:13 36.8 68 18 149/66 (93) 92 Nasal Cannula 2.00 05/26/20 17:08 28 Capillary Refill : Less Than 3 Seconds General Appearance: No Apparent Distress, WD/WN, Chronically ill Respiratory: Chest Non Tender, Lungs Clear, Normal Breath Sounds, No Accessory Muscle Use, No Respiratory Distress Cardiovascular: Regular Rate, Rhythm, No Edema, No Gallop, No JVD, No Murmur, Normal Peripheral Pulses Neurologic/Psychiatric: Alert, Oriented x3, No Motor/Sensory Deficits, Normal Mood/Affect Results/Procedures Lab Laboratory Tests 05/28/20 05:33 Patient resulted labs reviewed. Assessment/Plan Assessment and Plan Assess & Plan/Chief Complaint Assessment: COVID-19 PNA Coumadin treatment Hypothyroidism Plan: Continue aggressive treatment O2 Monitor closely Diagnosis/Problems Diagnosis/Problems (1) COVID-19 (2) UTI (urinary tract infection) (3) Warfarin anticoagulation (4) CAD (coronary artery disease) (5) Acquired hypothyroidism (6) Dyspnea Status: Acute Qualifiers: Dyspnea type: unspecified Qualified Codes: R06.00 - Dyspnea, unspecified (7) Generalized weakness Status: Acute (8) Diarrhea Qualifiers: Diarrhea type: unspecified type Qualified Codes: R19.7 - Diarrhea, unspecified (9) Debility Clinical Quality Measures DVT/VTE Risk/Contraindication: Risk Factor Score Per Nursin RFS Level Per Nursing on Admit: 4+=Very High CATRACHITO ARIAS DO May 27, 2020 10:36
[2020-05-27 11:25] VITALS: BP 161/77
[2020-05-27] MEDS ORDERED: REMDESIVIR INJ 100 MG in NS (IVPB) 230 ML IV SCH (11:30)
[2020-05-27] MEDS: REMDESIVIR INJ 100 MG in NS (IVPB) 230 ML IV SCH (12:30)
--- NOTE | 2020-05-27 13:57 | NUR ---
"RD ASSESSMENT PMHx: CAD; DVT; heart attack; PT INTERACTION: Note pt is currently in COVID isolation, per chart review. Note all diet information for nutrition assessment is per Kisha RN, or per chart review. Kisha states current appetite appears good. Note avg PO intake 50% x1d, per chart review. Kisha states no issues with nausea, vomiting, constipation, or diarrhea that she is aware of. Kisha states pt mentioned they had not had BM in a few days. Note pt not currently on bowel regimen per chart review. Note unable to determine recent wt hx, per chart review. ABNORMAL NUTRITION-RELATED LAB VALUES LOW: Ca 7.8; pro 5.8; HIGH: BUN 19; glu 131; Est. kcal needs: 3406-8649 kcal | 20-25 kcal/kg Est. Pro needs: 63-79 g Pro | 0.8-1.0 g Pro/kg PES STATEMENT: Inadequate oral intake (NI-2.1) related to loss of appetite as evidenced by chart review, communication with RN and avg PO intake 50% x1d. INTERVENTION: Continue with current diet order of Regular diet. Add Ensure Enlive (vary) with meals TID, for increased kcal intake. Provides 350 kcal and 20 g Pro per serving. Pt may benefit from bowel regimen if constipation persists. Will continue to follow and reassess as pt needs, intake, and status change. Patricia Riley, MS RD LD"
[2020-05-27 16:00] VITALS: BP 157/70
[2020-05-27] MEDS: warFARin 5 MG (COUMADIN) TAB PO SCH (20:43)
[2020-05-27] MEDS: DOCUSATE SODIUM 100 MG (COLACE) CAP PO SCH (20:44)
[2020-05-28 00:13] VITALS: BP 149/66
[2020-05-28] MEDS: ACETAMINOPHEN 500 MG TAB (TYLENOL) PO PRN (04:16)
[2020-05-28] MEDS: LACTATED RINGERS 1,000 ML IV SCH (04:19)
[2020-05-28] MEDS: cefTRIAXone FOR IV USE 1,000 MG in WATER (STERILE) FOR INJECTION 10 ML IV SCH (05:33)
[2020-05-28] MEDS: LEVOTHYROXINE 75 MCG (LEVOTHROID) TABLET PO SCH (05:33)
[2020-05-28 06:06] LABS: BASOPHILS % (AUTO) 0 % (0-10); EOSINOPHILS % (AUTO) 0 % (0-10); HEMATOCRIT 32 % (35-52); HEMOGLOBIN 10.5 g/dL (11.5-16.0); LYMPHOCYTES # (AUTO) 0.9 10^3/uL (1.0-4.0); LYMPHOCYTES % (AUTO) 12 % (12-44); MEAN CORPUSCULAR HEMOGLOBIN 30 pg (25-34); MEAN CORPUSCULAR HGB CONC 33 g/dL (32-36); MEAN CORPUSCULAR VOLUME 90 fL (80-99); MEAN PLATELET VOLUME 9.2 fL (9.0-12.2); MONOCYTES # (AUTO) 0.5 10^3/uL (0.0-1.0); MONOCYTES % (AUTO) 7 % (0-12); NEUTROPHILS # (AUTO) 5.8 10^3/uL (1.8-7.8); NEUTROPHILS % (AUTO) 81 % (42-75); PLATELET COUNT 234 10^3/uL (130-400); WHITE BLOOD COUNT 7.2 10^3/uL (4.3-11.0)
[2020-05-28 06:17] LABS: INR 2.8 (0.8-1.4); PROTHROMBIN TIME PATIENT 29.8 SEC (12.2-14.7)
[2020-05-28 06:19] LABS: ALBUMIN 3.1 GM/DL (3.2-4.5); BILIRUBIN,TOTAL 0.5 MG/DL (0.1-1.0); CALCIUM 7.9 MG/DL (8.5-10.1); CREATININE SERUM 0.99 MG/DL (0.60-1.30); POTASSIUM 4.2 MMOL/L (3.6-5.0); TOTAL PROTEIN 5.7 GM/DL (6.4-8.2)
--- NOTE | 2020-05-28 07:12 | Progress Note - Hospitalist ---
Subjective HPI/CC On Admission Date Seen by Provider: May 28, 2020 Time Seen by Provider: 10:30 CC: SOB HPI: This is a 75yoWF who presented with Covid symptoms for one week. Pt was found to be hypoxic with all the signs of Covid related issues so she was deemed stable for admission to the floor. Pt will be started on Remdesivir and convalescent plasma, along with Decadron and she will be monitored closely for any type of respiratory compromise. Subjective/Events-last exam Pt doing pretty well except for left lower quadrant abdominal pain Gave her a laxative of which she requested because she thinks it might be due to constipation Consulted Dr. Rudd in case this is some sort of colon issue INR 2.8 Overall doing pretty well Tolerating Remdesivir for Covid-19 treatment Remains on O2 Review of Systems General: Fatigue, Malaise Pulmonary: Dyspnea Gastrointestinal: Abdominal Pain Focused Exam Lactate Level Objective Exam Vital Signs Vital Signs Date Time Temp Pulse Resp B/P (MAP) Pulse Ox O2 Delivery O2 Flow Rate FiO2 05/29/20 02:40 Room Air 05/28/20 23:54 36.8 69 20 136/65 (88) 93 2.00 05/28/20 08:00 100 Capillary Refill : Less Than 3 Seconds General Appearance: No Apparent Distress, WD/WN, Chronically ill Respiratory: Chest Non Tender, Normal Breath Sounds, No Respiratory Distress, Accessory Muscle Use, Decreased Breath Sounds Cardiovascular: Regular Rate, Rhythm, No Edema, No Gallop, No JVD, No Murmur, Normal Peripheral Pulses Gastrointestinal: Tenderness (LLQ) Neurologic/Psychiatric: Alert, Oriented x3, No Motor/Sensory Deficits, Normal Mood/Affect Results/Procedures Lab Laboratory Tests 05/28/20 05:33 05/29/20 04:00 Patient resulted labs reviewed. Assessment/Plan Assessment and Plan Assess & Plan/Chief Complaint Assessment: COVID-19 PNA Coumadin treatment Hypothyroidism Plan: Continue aggressive treatment O2 Monitor closely 05/28/20: Monitor LLQ abdominal pain Consult Dr Rudd Maintain O2 COVID treatment tolerated Diagnosis/Problems Diagnosis/Problems (1) COVID-19 (2) UTI (urinary tract infection) (3) Warfarin anticoagulation (4) CAD (coronary artery disease) (5) Acquired hypothyroidism (6) Dyspnea Status: Acute Qualifiers: Dyspnea type: unspecified Qualified Codes: R06.00 - Dyspnea, unspecified (7) Generalized weakness Status: Acute (8) Diarrhea Qualifiers: Diarrhea type: unspecified type Qualified Codes: R19.7 - Diarrhea, unspecified (9) Debility Clinical Quality Measures DVT/VTE Risk/Contraindication: Risk Factor Score Per Nursin RFS Level Per Nursing on Admit: 4+=Very High CATRACHITO ARIAS DO May 28, 2020 07:12
[2020-05-28] MEDS: ENOXAPARIN 40 MG/0.4 ML (LOVENOX) SYR SC SCH (08:02)
[2020-05-28] MEDS: DOCUSATE SODIUM 100 MG (COLACE) CAP PO SCH (08:02)
[2020-05-28] MEDS: LOSARTAN 25 MG (COZAAR) TAB PO SCH (08:03)
[2020-05-28 08:25] VITALS: BP 129/75
[2020-05-28] MEDS: RT-ALBUTEROL INHALER HFA (VENTOLIN HFA) 18 GM IH SCH ×3 (09:53→20:49)
[2020-05-28] MEDS ORDERED: polyethylene glycoL POWDER 17 GM (MIRALAX) PACK PO PRN (10:00)
[2020-05-28] MEDS: REMDESIVIR INJ 100 MG in NS (IVPB) 230 ML IV SCH (13:08)
[2020-05-28 16:23] VITALS: BP 135/66
[2020-05-28] MEDS: MAGNESIUM CITRATE 300 ML BTL PO SCH ×2 (18:23→20:57)
--- NOTE | 2020-05-28 19:13 | CONSULTATION REPORT ---
DATE OF SERVICE: 05/28/2020 ADMITTING PHYSICIAN: Dr. Combs. HISTORY OF PRESENT ILLNESS: The patient is a 75-year-old female who presented with shortness of breath as well as mild fever and was found to be coronavirus-19 positive. She was admitted and I given adequate medical treatment and states that she has improved dramatically. She does report that she did develop some mild pain in the left lower abdominal quadrant. She also reports that she has not had a bowel movement in 4 days that she normally has a bowel movement on a daily basis. Upon examination, she does have mild discomfort in the left lower abdominal quadrant with no peritoneal signs and no hernias. This likely represents constipation. PAST MEDICAL HISTORY: Hypothyroid, hypertension, coronary artery disease, hypercholesterolemia. PAST SURGICAL HISTORY: Thyroidectomy for benign disease, knee arthroscopy, cardiac catheterization and stent placement. ALLERGIES: No known drug allergies. MEDICATION: See medication reconciliation. SOCIAL HISTORY: Negative smoke, negative alcohol. FAMILY HISTORY: Noncontributory. VITAL SIGNS: Stable, afebrile. REVIEW OF SYSTEMS: Well-nourished female, in no acute distress. She is not experiencing any shortness of breath or difficulty breathing. No chest pain, palpitations or diaphoresis. No nausea, vomiting with obstipation for the past 4 days with mild left lower abdominal quadrant pain. No peritonitis. No hernias. No fever, chills, no recent inadvertent weight loss. All other review of systems negative. PHYSICAL EXAMINATION: CHEST: Few scattered rales bilaterally. HEART: Regular, no murmurs. EXTREMITIES: No lower extremity edema, negative Homans sign. HEENT: No scleral icterus. NECK: No cervical lymphadenopathy. ABDOMEN: Soft, nondistended. There is pain in the left lower abdominal quadrant on deep palpation. There are no peritoneal signs. No hernias palpable. SKIN: Warm, dry. ASSESSMENT AND PLAN: A 75-year-old female with coronavirus-19 acute lung injury, who has responded well to medical therapy. During this process, she has not had a bowel movement for four days and normally has a bowel movement on a daily basis. For this, we will proceed with a magnesium citrate 150 mg b.i.d. until she has significant bowel movement. She has also never had a colonoscopy up to this point in her life and later on as an outpatient due to this episode of mild diverticulitis versus a fecal impaction as well as absence from colonoscopy in her lifetime and her age, we will recommend a followup colonoscopy. Job ID: [id number] DocumentID: [id number] Dictated Date: 05/28/2020 15:09:18 Him Clerk Date: 05/28/2020 19:11:44 Dictated By: ALICIA VERDIN MD
[2020-05-28] MEDS: SENNA W/DOCUSATE (SENOKOT S) TABLET PO SCH (20:55)
[2020-05-28] MEDS: warFARin 5 MG (COUMADIN) TAB PO SCH (20:55)
[2020-05-28] MEDS: polyethylene glycoL POWDER 17 GM (MIRALAX) PACK PO SCH (20:55)
[2020-05-28 23:54] VITALS: BP 136/65
[2020-05-29] MEDS: RT-ALBUTEROL INHALER HFA (VENTOLIN HFA) 18 GM IH SCH ×4 (02:40→19:03)
[2020-05-29 04:58] LABS: BASOPHILS % (AUTO) 0 % (0-10); EOSINOPHILS % (AUTO) 0 % (0-10); HEMATOCRIT 34 % (35-52); HEMOGLOBIN 10.8 g/dL (11.5-16.0); LYMPHOCYTES # (AUTO) 1.2 10^3/uL (1.0-4.0); LYMPHOCYTES % (AUTO) 15 % (12-44); MEAN CORPUSCULAR HEMOGLOBIN 29 pg (25-34); MEAN CORPUSCULAR HGB CONC 32 g/dL (32-36); MEAN CORPUSCULAR VOLUME 91 fL (80-99); MEAN PLATELET VOLUME 9.3 fL (9.0-12.2); MONOCYTES # (AUTO) 0.5 10^3/uL (0.0-1.0); MONOCYTES % (AUTO) 6 % (0-12); NEUTROPHILS # (AUTO) 6.5 10^3/uL (1.8-7.8); NEUTROPHILS % (AUTO) 79 % (42-75); PLATELET COUNT 248 10^3/uL (130-400); WHITE BLOOD COUNT 8.3 10^3/uL (4.3-11.0)
[2020-05-29 05:26] LABS: ALBUMIN 3.3 GM/DL (3.2-4.5); POTASSIUM 3.9 MMOL/L (3.6-5.0)
[2020-05-29 05:27] LABS: CALCIUM 7.7 MG/DL (8.5-10.1)
[2020-05-29 05:29] LABS: TOTAL PROTEIN 5.9 GM/DL (6.4-8.2)
[2020-05-29 05:31] LABS: BILIRUBIN,TOTAL 0.6 MG/DL (0.1-1.0)
[2020-05-29 05:32] LABS: CREATININE SERUM 1.02 MG/DL (0.60-1.30)
[2020-05-29] MEDS: cefTRIAXone FOR IV USE 1,000 MG in WATER (STERILE) FOR INJECTION 10 ML IV SCH (05:54)
[2020-05-29] MEDS: LEVOTHYROXINE 75 MCG (LEVOTHROID) TABLET PO SCH (05:54)
--- NOTE | 2020-05-29 06:05 | Progress Note - Hospitalist ---
Subjective HPI/CC On Admission Date Seen by Provider: May 29, 2020 Time Seen by Provider: 11:00 CC: SOB HPI: This is a 75yoWF who presented with Covid symptoms for one week. Pt was found to be hypoxic with all the signs of Covid related issues so she was deemed stable for admission to the floor. Pt will be started on Remdesivir and convalescent plasma, along with Decadron and she will be monitored closely for any type of respiratory compromise. Subjective/Events-last exam Patient had a large BM after Mag Citrate and now having 10 loose stools Weak from loose stools O2 maintained Has home O2 at home anyway as her has it too INR 3.1 No med changes Review of Systems General: Fatigue, Malaise Pulmonary: Dyspnea Gastrointestinal: Diarrhea Objective Exam Vital Signs Vital Signs Date Time Temp Pulse Resp B/P (MAP) Pulse Ox O2 Delivery O2 Flow Rate FiO2 05/29/20 19:03 94 Nasal Cannula 2.00 05/29/20 16:20 36.1 77 17 115/55 (75) 05/28/20 08:00 100 Capillary Refill : Less Than 3 Seconds General Appearance: No Apparent Distress, WD/WN, Chronically ill Respiratory: Chest Non Tender, Lungs Clear, Normal Breath Sounds, No Accessory Muscle Use, No Respiratory Distress Cardiovascular: Regular Rate, Rhythm, No Edema, No Gallop, No JVD, No Murmur, Normal Peripheral Pulses Neurologic/Psychiatric: Alert, Oriented x3, No Motor/Sensory Deficits, Normal Mood/Affect Results/Procedures Lab Laboratory Tests 05/29/20 04:00 Patient resulted labs reviewed. Assessment/Plan Assessment and Plan Assess & Plan/Chief Complaint Assessment: COVID-19 PNA Coumadin treatment Hypothyroidism Plan: Continue aggressive treatment O2 Monitor closely 05/28/20: Monitor LLQ abdominal pain Consult Dr Rudd Maintain O2 COVID treatment tolerated 05/29/20: BM regimen successful Monitor labs O2 wean Diagnosis/Problems Diagnosis/Problems (1) COVID-19 (2) UTI (urinary tract infection) (3) Warfarin anticoagulation (4) CAD (coronary artery disease) (5) Acquired hypothyroidism (6) Dyspnea Status: Acute Qualifiers: Dyspnea type: unspecified Qualified Codes: R06.00 - Dyspnea, unspecified (7) Generalized weakness Status: Acute (8) Diarrhea Qualifiers: Diarrhea type: unspecified type Qualified Codes: R19.7 - Diarrhea, unspecified (9) Debility Clinical Quality Measures DVT/VTE Risk/Contraindication: Risk Factor Score Per Nursin RFS Level Per Nursing on Admit: 4+=Very High CATRACHITO ARIAS DO May 29, 2020 06:05
[2020-05-29 07:09] LABS: INR 3.1 (0.8-1.4); PROTHROMBIN TIME PATIENT 32.3 SEC (12.2-14.7)
[2020-05-29 07:50] VITALS: BP 115/88
[2020-05-29] MEDS: LOSARTAN 25 MG (COZAAR) TAB PO SCH (09:00)
[2020-05-29] MEDS: MAGNESIUM CITRATE 300 ML BTL PO SCH ×2 (09:00→19:31)
[2020-05-29] MEDS: SENNA W/DOCUSATE (SENOKOT S) TABLET PO SCH ×2 (09:01→19:31)
[2020-05-29] MEDS: polyethylene glycoL POWDER 17 GM (MIRALAX) PACK PO SCH ×2 (09:01→19:31)
[2020-05-29] MEDS: REMDESIVIR INJ 100 MG in NS (IVPB) 230 ML IV SCH (11:38)
[2020-05-29 16:20] VITALS: BP 115/55
[2020-05-29] MEDS: warFARin 5 MG (COUMADIN) TAB PO SCH (19:31)
[2020-05-29 23:38] VITALS: BP 133/62
[2020-05-30] MEDS: RT-ALBUTEROL INHALER HFA (VENTOLIN HFA) 18 GM IH SCH ×4 (02:31→22:16)
[2020-05-30] MEDS: cefTRIAXone FOR IV USE 1,000 MG in WATER (STERILE) FOR INJECTION 10 ML IV SCH (05:17)
[2020-05-30] MEDS: LEVOTHYROXINE 75 MCG (LEVOTHROID) TABLET PO SCH (05:17)
[2020-05-30 05:47] LABS: BASOPHILS % (AUTO) 0 % (0-10); EOSINOPHILS % (AUTO) 0 % (0-10); HEMATOCRIT 29 % (35-52); HEMOGLOBIN 9.5 g/dL (11.5-16.0); LYMPHOCYTES % (AUTO) 14 % (12-44); MEAN CORPUSCULAR HEMOGLOBIN 29 pg (25-34); MEAN CORPUSCULAR HGB CONC 32 g/dL (32-36); MEAN CORPUSCULAR VOLUME 91 fL (80-99); MEAN PLATELET VOLUME 9.3 fL (9.0-12.2); MONOCYTES # (AUTO) 0.5 10^3/uL (0.0-1.0); MONOCYTES % (AUTO) 7 % (0-12); NEUTROPHILS # (AUTO) 5.2 10^3/uL (1.8-7.8); NEUTROPHILS % (AUTO) 78 % (42-75); PLATELET COUNT 235 10^3/uL (130-400); WHITE BLOOD COUNT 6.7 10^3/uL (4.3-11.0)
[2020-05-30 05:59] LABS: ALBUMIN 2.9 GM/DL (3.2-4.5)
[2020-05-30 06:00] LABS: POTASSIUM 3.8 MMOL/L (3.6-5.0)
[2020-05-30 06:01] LABS: CALCIUM 7.4 MG/DL (8.5-10.1)
[2020-05-30 06:02] LABS: TOTAL PROTEIN 5.2 GM/DL (6.4-8.2)
[2020-05-30 06:04] LABS: BILIRUBIN,TOTAL 0.6 MG/DL (0.1-1.0)
[2020-05-30 06:06] LABS: CREATININE SERUM 0.91 MG/DL (0.60-1.30)
--- NOTE | 2020-05-30 07:00 | Progress Note - Hospitalist ---
Subjective HPI/CC On Admission Date Seen by Provider: May 30, 2020 Time Seen by Provider: 10:00 CC: SOB HPI: This is a 75yoWF who presented with Covid symptoms for one week. Pt was found to be hypoxic with all the signs of Covid related issues so she was deemed stable for admission to the floor. Pt will be started on Remdesivir and convalescent plasma, along with Decadron and she will be monitored closely for any type of respiratory compromise. Subjective/Events-last exam Patient doing better Weak today but will plan on DC tomorrow No increased cough Review of Systems General: Fatigue Pulmonary: Dyspnea Objective Exam Vital Signs Vital Signs Date Time Temp Pulse Resp B/P (MAP) Pulse Ox O2 Delivery O2 Flow Rate FiO2 05/31/20 00:23 36.2 88 19 143/60 (87) 92 Nasal Cannula 2.00 05/28/20 08:00 100 Capillary Refill : Less Than 3 Seconds General Appearance: No Apparent Distress, WD/WN, Chronically ill Respiratory: Chest Non Tender, Lungs Clear, Normal Breath Sounds, No Accessory Muscle Use, No Respiratory Distress Cardiovascular: Regular Rate, Rhythm, No Edema, No Gallop, No JVD, No Murmur, Normal Peripheral Pulses Neurologic/Psychiatric: Alert, Oriented x3, No Motor/Sensory Deficits, Normal Mood/Affect Results/Procedures Lab Patient resulted labs reviewed. Assessment/Plan Assessment and Plan Assess & Plan/Chief Complaint Assessment: COVID-19 PNA Coumadin treatment Hypothyroidism Plan: Continue aggressive treatment O2 Monitor closely 05/28/20: Monitor LLQ abdominal pain Consult Dr Rudd Maintain O2 COVID treatment tolerated 05/29/20: BM regimen successful Monitor labs O2 wean 05/30/20: Has home O2 at home Complete COVID 19 treatment DC home tomorrow Diagnosis/Problems Diagnosis/Problems (1) COVID-19 (2) UTI (urinary tract infection) (3) Warfarin anticoagulation (4) CAD (coronary artery disease) (5) Acquired hypothyroidism (6) Dyspnea Status: Acute Qualifiers: Dyspnea type: unspecified Qualified Codes: R06.00 - Dyspnea, unspecified (7) Generalized weakness Status: Acute (8) Diarrhea Qualifiers: Diarrhea type: unspecified type Qualified Codes: R19.7 - Diarrhea, unspecified (9) Debility Clinical Quality Measures DVT/VTE Risk/Contraindication: Risk Factor Score Per Nursin RFS Level Per Nursing on Admit: 4+=Very High CATRACHITO ARIAS DO May 30, 2020 07:00
[2020-05-30 07:17] LABS: INR 3.7 (0.8-1.4); PROTHROMBIN TIME PATIENT 37.2 SEC (12.2-14.7)
[2020-05-30 08:45] VITALS: BP 116/56
[2020-05-30] MEDS: LOSARTAN 25 MG (COZAAR) TAB PO SCH (08:51)
[2020-05-30] MEDS: polyethylene glycoL POWDER 17 GM (MIRALAX) PACK PO SCH ×2 (09:23→21:07)
[2020-05-30] MEDS: SENNA W/DOCUSATE (SENOKOT S) TABLET PO SCH ×2 (09:23→21:07)
[2020-05-30] MEDS: MAGNESIUM CITRATE 300 ML BTL PO SCH ×2 (09:23→21:06)
[2020-05-30] MEDS: REMDESIVIR INJ 100 MG in NS (IVPB) 230 ML IV SCH (13:08)
--- NOTE | 2020-05-30 15:33 | NUR ---
PATIENT SAT ON 2L OF OXYGEN WAS 97% PATIENT PLACED ON ROOM AIR FOR 30 MIN. SAT WENT TO 92% AND REMAINED THERE WHEN WALKED PT DID NOT QUALIFY FOR HOME OXYGEN Addendum: 05/30/20 at 1534 by AUSTYN SOLORZANO RT Amended: Links added.
[2020-05-30 16:14] VITALS: BP 117/58
[2020-05-30] MEDS: warFARin 5 MG (COUMADIN) TAB PO SCH (21:11)
[2020-05-30] MEDS: BENZONATATE 100 MG (TESSALON) CAPSULE PO PRN (21:12)
[2020-05-31 00:23] VITALS: BP 143/60
[2020-05-31] MEDS: LEVOTHYROXINE 75 MCG (LEVOTHROID) TABLET PO SCH (05:49)
[2020-05-31] MEDS: cefTRIAXone FOR IV USE 1,000 MG in WATER (STERILE) FOR INJECTION 10 ML IV SCH (05:49)
[2020-05-31] MEDS: RT-ALBUTEROL INHALER HFA (VENTOLIN HFA) 18 GM IH SCH ×2 (07:18→15:36)
[2020-05-31] MEDS: MAGNESIUM CITRATE 300 ML BTL PO SCH (07:27)
[2020-05-31] MEDS: polyethylene glycoL POWDER 17 GM (MIRALAX) PACK PO SCH (07:28)
[2020-05-31] MEDS: SENNA W/DOCUSATE (SENOKOT S) TABLET PO SCH (07:28)
[2020-05-31 07:41] LABS: BASOPHILS % (AUTO) 0 % (0-10); EOSINOPHILS % (AUTO) 0 % (0-10); HEMATOCRIT 34 % (35-52); LYMPHOCYTES # (AUTO) 1.5 10^3/uL (1.0-4.0); LYMPHOCYTES % (AUTO) 17 % (12-44); MEAN CORPUSCULAR HEMOGLOBIN 29 pg (25-34); MEAN CORPUSCULAR HGB CONC 32 g/dL (32-36); MEAN CORPUSCULAR VOLUME 92 fL (80-99); MEAN PLATELET VOLUME 9.1 fL (9.0-12.2); MONOCYTES # (AUTO) 0.5 10^3/uL (0.0-1.0); MONOCYTES % (AUTO) 6 % (0-12); NEUTROPHILS # (AUTO) 6.6 10^3/uL (1.8-7.8); NEUTROPHILS % (AUTO) 76 % (42-75); PLATELET COUNT 338 10^3/uL (130-400); WHITE BLOOD COUNT 8.7 10^3/uL (4.3-11.0)
[2020-05-31 07:50] LABS: ALBUMIN 3.2 GM/DL (3.2-4.5)
[2020-05-31 07:52] LABS: INR 4.1 (0.8-1.4); PROTHROMBIN TIME PATIENT 39.9 SEC (12.2-14.7); TOTAL PROTEIN 6.1 GM/DL (6.4-8.2)
[2020-05-31 07:54] LABS: BILIRUBIN,TOTAL 0.7 MG/DL (0.1-1.0)
[2020-05-31 07:56] LABS: CREATININE SERUM 0.98 MG/DL (0.60-1.30)
[2020-05-31 08:00] VITALS: BP 147/67
[2020-05-31] MEDS: LOSARTAN 25 MG (COZAAR) TAB PO SCH (08:48)
[2020-05-31] MEDS ORDERED: WARF-48 PO (14:15)
[2020-05-31] MEDS ORDERED: BENZ100C18 PO (14:15)
[2020-05-31] MEDS ORDERED: ALBU18HF2 IH (14:15)
--- NOTE | 2020-05-31 14:16 | Discharge Summary ---
Discharge Summary Hospital Course Was the Problem List Reviewed?: Yes Problems/Dx: (1) COVID-19 (2) UTI (urinary tract infection) (3) Warfarin anticoagulation (4) CAD (coronary artery disease) (5) Acquired hypothyroidism (6) Dyspnea Status: Acute Qualifiers: Qualified Codes: R06.00 - Dyspnea, unspecified (7) Generalized weakness Status: Acute (8) Diarrhea Qualifiers: Qualified Codes: R19.7 - Diarrhea, unspecified (9) Debility Hospital Course Date of Admission: May 25, 2020 at 21:38 Admission Diagnosis : Family Physician/Provider: Kevon Duckworth MD Date of Discharge: 05/31/20 Discharge Diagnosis: [facility] PNA, chronic O2 dependence, Coumadin anticoagulation with supratherapeutic level of 4.1 at DC Hospital Course: Standard hospital course after admitted for hypoxia and COVID-19 requiring plasma, Remdesivir and Lovenox along with Decadron. Tolerated treatment well. PT OT consulted. Chronic O2 dependency gave rise to higher risk of decompensation. Uncomplicated course and INR 4.1 at time of DC so she will hold coumadin until Tuesday INR by PCP Labs and Pending Lab Test: Laboratory Tests 05/31/20 07:31: White Blood Count 8.7, Red Blood Count 3.74L, Hemoglobin 11.0L, Hematocrit 34L, Mean Corpuscular Volume 92, Mean Corpuscular Hemoglobin 29, Mean Corpuscular Hemoglobin Concent 32, Red Cell Distribution Width 12.7, Platelet Count 338, Mean Platelet Volume 9.1, Immature Granulocyte % (Auto) 1, Neutrophils (%) (Auto) 76H, Lymphocytes (%) (Auto) 17, Monocytes (%) (Auto) 6, Eosinophils (%) (Auto) 0, Basophils (%) (Auto) 0, Neutrophils # (Auto) 6.6, Lymphocytes # (Auto) 1.5, Monocytes # (Auto) 0.5, Eosinophils # (Auto) 0.0, Basophils # (Auto) 0.0, Immature Granulocyte # (Auto) 0.1, Prothrombin Time 39.9H, INR Comment 4.1H, Sodium Level 137, Potassium Level 4.0, Chloride Level 103, Carbon Dioxide Level 22, Anion Gap 12, Blood Urea Nitrogen 20H, Creatinine 0.98, Estimat Glomerular Filtration Rate 55, BUN/Creatinine Ratio 20, Glucose Level 104, Calcium Level 8.0L, Corrected Calcium 8.6, Total Bilirubin 0.7, Aspartate Amino Transf (AST/SGOT) 30, Alanine Aminotransferase (ALT/SGPT) 33, Alkaline Phosphatase 67, Total Protein 6.1L, Albumin 3.2 Microbiology 05/26/20 Blood Culture - Preliminary, Resulted No growth 05/25/20 Urine Culture - Final, Complete Escherichia coli 05/25/20 Influenza Types A,B Antigen (DOYLE) - Final, Complete Home Meds Active Reported Doxycycline Hyclate 100 Mg Tablet 100 Mg PO BID 10 Days LAST DOSE WILL BE ON 06/02/2020 Tylenol Sinus Headache Caplet (Phenylephrine HCl/Acetaminophn) 1 Each Tablet 1 Each PO DAILY PRN Fish Oil 1,000 mg Capsule ([place] 3 Polyunsat Fatty Acids) 1,000 Mg Cap 2,000 Mg PO HS TAKES 2 (1000MG) CAPSULES Levothyroxine Sodium 75 Mcg Tablet 75 Mcg PO DAILY Warfarin Sodium 5 Mg Tablet 5 Mg PO HS Losartan Potassium 25 Mg Tablet 25 Mg PO DAILY Benzonatate 100 Mg Capsule 100 Mg PO TID 7 Days LAST DOSE WILL BE ON 05/30/2020 Assessment/Pt Instructions [facility] to check INR Tuesday Discharge Planning: <30 minutes discharge planning Discharge Instructions Pneumonia Vaccine Order Indica: Yes Discharge Physical Examination Vital Signs Vital Signs Date Time Temp Pulse Resp B/P (MAP) Pulse Ox O2 Delivery O2 Flow Rate FiO2 05/31/20 08:00 92 Nasal Cannula 2.00 100 05/31/20 08:00 36.0 82 20 147/67 (93) General Appearance: No Apparent Distress, WD/WN, Chronically ill Allergies: Coded Allergies: meperidine (Verified Allergy, Unknown, 01/24/06) Discharge Summary Date of Admission May 25, 2020 at 21:38 Date of Discharge Discharge Date: May 31, 2020 Admission Diagnosis Assessment: COVID-19 PNA Hypoxia CAD Previous DVT's Hypothyroidism Coumadin treatment now supratherapeutic Acute UTI Plan: COVID treatment O2 PPE use Monitor closely Monitor INR Rocephin for UTI empiric Discharge Diagnosis Assessment: COVID-19 PNA Coumadin treatment Hypothyroidism Plan: Continue aggressive treatment O2 Monitor closely 05/28/20: Monitor LLQ abdominal pain Consult Dr Rudd Maintain O2 COVID treatment tolerated 05/29/20: BM regimen successful Monitor labs O2 wean 05/30/20: Has home O2 at home Complete COVID 19 treatment DC home tomorrow (1) COVID-19 (2) UTI (urinary tract infection) (3) Warfarin anticoagulation (4) CAD (coronary artery disease) (5) Acquired hypothyroidism (6) Dyspnea Status: Acute Qualifiers: Qualified Codes: R06.00 - Dyspnea, unspecified (7) Generalized weakness Status: Acute (8) Diarrhea Qualifiers: Qualified Codes: R19.7 - Diarrhea, unspecified (9) Debility Clinical Quality Measures DVT/VTE Risk/Contraindication: Risk Factor Score Per Nursin RFS Level Per Nursing on Admit: 4+=Very High CATRACHITO ARIAS DO May 31, 2020 14:16
[2020-05-31 16:12] VITALS: BP 138/70
[2020-05-31] MEDS: BENZONATATE 100 MG (TESSALON) CAPSULE PO PRN (16:24)
[2020-05-31 16:55] VITALS: BP 138/70
== END 2020-05-31 17:05 | disposition home or self-care (01) | DRG 177 ==
LOC: EDUNIT# 19:21 → ER 19:24 → 4TH 21:38
PROVIDERS: ADMIT Internal Medicine; ATTEND Internal Medicine
PROC: XW033E5 Introduction of Remdesivir Anti-infective into Peripheral Vein, Percutaneous Approach, New Technology Group 5 (ICD-10-PCS; principal; 2020-05-26)
PROC: XW13325 Transfusion of Convalescent Plasma (Nonautologous) into Peripheral Vein, Percutaneous Approach, New Technology Group 5 (ICD-10-PCS; 2020-05-26)
DX: U07.1 COVID-19 (principal); J12.89 Other viral pneumonia; N39.0 Urinary tract infection, site not specified; R09.02 Hypoxemia; I25.10 Atherosclerotic heart disease of native coronary artery without angina pectoris; I10 Essential (primary) hypertension; K59.00 Constipation, unspecified; R19.7 Diarrhea, unspecified; E03.9 Hypothyroidism, unspecified; E78.00 Pure hypercholesterolemia, unspecified; I25.2 Old myocardial infarction; R53.81 Other malaise; Z86.718 Personal history of other venous thrombosis and embolism; Z79.01 Long term (current) use of anticoagulants; Z86.711 Personal history of pulmonary embolism; Z95.5 Presence of coronary angioplasty implant and graft; Z99.81 Dependence on supplemental oxygen
CPT/HCPCS: 36415; 71045; 80053; 81000; 83605; 83615; 84145; 85025; 85610; 85730; 86141; 86850; 86900; 86901; 87040; 87077; 87088; 87186; 87804; 94640; 94664; 94760; 94761

== ENCOUNTER 2020-06-01 12:12 | Emergency (ER) | payer MEDICARE, OTHER ==
[~2020-06-01] VITALS: Ht 165.1 cm; Wt 79.4 kg
[~2020-06-01 12:12] MED LIST changes: +ALBU18HF2 IH; +BENZ-36 PO; +LEVO75TA6 PO; +LOSA25TA41 PO; +OMG1KC PO; +WARF-48 PO; +[UNRECOGNIZED DRUG - CODE] PO
[2020-06-01] MEDS ORDERED: NS IV 1000 ML 1,000 ML IV SCH ×2 (13:00→14:15)
--- NOTE | 2020-06-01 13:15 | ED General ---
General Chief Complaint: Respiratory Problems Stated Complaint: SOA Nursing Triage Note: Patient reports she began having congestion, cough, shortness of breath, and fever on 05/18/20, tested positive for COVID-19 on 05/17/20. She states she was admitted to the hospital on 05/25/20 and discharged to home yesterday. She reports her shortness of breath has not improved, states she passed out while sitting in a chair at home today, family members present called EMS. She denies any injury from the fall, states she "slid off the chair onto the floor." Nursing Sepsis Screen: Possible Sepsis Risk Source of Information: Patient, EMS History of Present Illness Date Seen by Provider: Jun 01, 2020 Time Seen by Provider: 12:41 Initial Comments 75 yo female presenting with EMS from home having complaints of slipping from the chair onto the floor. She states that she had just been discharged from the hospital yesterday. She states that she has not had much traction seen at home. She was feeling dizzy and just not feeling well. She has continued to have congestion and cough and shortness of breath since getting home. She states that she was just sitting in a chair today and had slid to the floor because she was so lightheaded and dizzy. She had not hit her head or injured herself. She denies any burning with urination or nausea or vomiting. She has had no diarrhea since she got home. She gets easily winded with any exertion. She has been using her supplemental oxygen since she got home. Allergies and Home Medications Allergies Coded Allergies: meperidine (Verified Allergy, Unknown, 01/24/06) Home Medications Albuterol Sulfate 18 Gm Hfa.aer.ad, 0 GM IH RTQ6HR Prescribed by: CATRACHITO ARIAS on 05/31/20 1415 Benzonatate 100 Mg Capsule, 200 MG PO TID PRN for COUGH Prescribed by: CATRACHITO ARIAS on 05/31/20 1415 Levothyroxine Sodium 75 Mcg Tablet, 75 MCG PO DAILY, (Reported) Losartan Potassium 25 Mg Tablet, 25 MG PO DAILY, (Reported) [place] 3 Polyunsat Fatty Acids 1,000 Mg Cap, 2,000 MG PO HS, (Reported) TAKES 2 (1000MG) CAPSULES Phenylephrine HCl/Acetaminophn 1 Each Tablet, 1 EACH PO DAILY PRN for SINUSES, (Reported) Warfarin Sodium 5 Mg Tablet, 5 MG PO HS Hold Coumadin until INR checked on Tuesday Prescribed by: CATRACHITO ARIAS on 05/31/20 1415 Patient Home Medication List Home Medication List Reviewed: Yes Review of Systems Review of Systems Constitutional: dizziness; No fever; malaise, weakness (general) EENTM: hoarseness, nose congestion Respiratory: cough, dyspnea on exertion, short of breath; No stridor Cardiovascular: No chest pain Gastrointestinal: No abdominal pain, No nausea, No vomiting Genitourinary: decreased output Musculoskeletal: muscle pain (generalized muscle aches and pain) Skin: No rash Psychiatric/Neurological: Headache, Weakness (generalized) Past Nkkbmik-Mtpteu-Ovexlu Hx Past Med/Social Hx: Reviewed Nursing Past Med/Soc Hx Patient Social History Alcohol Use: Denies Use Recreational Drug Use: No Smoking Status: Never a Smoker 2nd Hand Smoke Exposure: No Recent Foreign Travel: No Contact w/Someone Who Travel: No Recent Infectious Disease Expo: No Recent Hopitalizations: No Physical Abuse: No Sexual Abuse: No Mistreated: No Fear: No Immunizations Up To Date Date of Influenza Vaccine: Apr 03, 2020 Seasonal Allergies Seasonal Allergies: Yes Past Medical History Surgeries: Yes (thyroid surgery, knee scope) Coronary Stent Respiratory: Yes (DVT x 3) Pulmonary Embolism Cardiac: Yes Coronary Artery Disease, Deep Vein Thrombosis, Heart Attack Neurological: No Reproductive Disorders: No Genitourinary: No Gastrointestinal: No Musculoskeletal: No Endocrine: No HEENT: No Cancer: No Psychosocial: No Integumentary: No Family Medical History Patient reports no known family medical history. Physical Exam Vital Signs Vital Signs - First Documented 06/01/20 12:28 Temp 36.2 Pulse 96 Resp 23 B/P (MAP) 128/64 (85) Pulse Ox 97 O2 Delivery Non Rebreather O2 Flow Rate 15.00 Capillary Refill : Less Than 3 Seconds Height, Weight, BMI Height: '" Weight: lbs. oz. kg; 29.00 BMI Method: General Appearance: WD/WN, Mild Distress HEENT: PERRL/EOMI; No Moist Mucous Membranes (slightly dry mucous membranes) Neck: Full Range of Motion, Normal Inspection, Non Tender, Supple Respiratory: Chest Non Tender, No Accessory Muscle Use, No Respiratory Distress, Decreased Breath Sounds; No Rales, No Rhonci, No Stridor Cardiovascular: Regular Rate, Rhythm, Normal Peripheral Pulses Gastrointestinal: Normal Bowel Sounds, No Pulsatile Mass, Non Tender, Soft Extremity: Normal Capillary Refill, Normal Range of Motion, No Calf Tenderness, No Pedal Edema Neurologic/Psychiatric: Alert, 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, 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 Norm as Tested Skin: Normal Color, Warm/Dry Focused Exam Lactate Level 06/01/20 13:10: Lactic Acid Level 1.49 Lactic Acid Level Progress/Results/Core Measures Suspected Sepsis Recent Fever Within 48 Hours: No Infection Criteria Present: Documented Infection New/Unexplained Altered Menta: No Sepsis Screen: Possible Sepsis Risk SIRS Temperature: Pulse: 96 Respiratory Rate: 23 Laboratory Tests 06/01/20 13:10: White Blood Count 11.9H Blood Pressure 128 /64 Mean: 85 06/01/20 13:10: Lactic Acid Level 1.49 Laboratory Tests 06/01/20 13:10: Creatinine 1.09, Platelet Count 390, Total Bilirubin 0.8 Results/Orders Lab Results Laboratory Tests Test 06/01/20 13:10 Range/Units White Blood Count 11.9 H 4.3-11.0 10^3/uL Red Blood Count 3.48 L 4.35-5.85 10^6/uL Hemoglobin 10.3 L 11.5-16.0 G/DL Hematocrit 31 L 35-52 % Mean Corpuscular Volume 89 80-99 FL Mean Corpuscular Hemoglobin 30 25-34 PG Mean Corpuscular Hemoglobin Concent 33 32-36 G/DL Red Cell Distribution Width 12.9 10.0-14.5 % Platelet Count 390 130-400 10^3/uL Mean Platelet Volume 8.8 7.4-10.4 FL Immature Granulocyte % (Auto) 1 % Neutrophils (%) (Auto) 85 H 42-75 % Lymphocytes (%) (Auto) 8 L 12-44 % Monocytes (%) (Auto) 6 0-12 % Eosinophils (%) (Auto) 0 0-10 % Basophils (%) (Auto) 0 0-10 % Neutrophils # (Auto) 10.1 H 1.8-7.8 X 10^3 Lymphocytes # (Auto) 0.9 L 1.0-4.0 X 10^3 Monocytes # (Auto) 0.7 0.0-1.0 X 10^3 Eosinophils # (Auto) 0.0 0.0-0.3 10^3/uL Basophils # (Auto) 0.0 0.0-0.1 10^3/uL Immature Granulocyte # (Auto) 0.1 0.0-0.1 10^3/uL Neutrophils % (Manual) 81 % Lymphocytes % (Manual) 5 % Monocytes % (Manual) 4 % Eosinophils % (Manual) 0 % Basophils % (Manual) 0 % Band Neutrophils 7 % Atypical Lymphocytes 3 % Hypochromasia 1+ Urine Color DARK YELLOW Urine Clarity CLEAR Urine pH 7.0 5-9 Urine Specific [place] 1.020 1.016-1.022 Urine Protein NEGATIVE NEGATIVE Urine Glucose (UA) NEGATIVE NEGATIVE Urine Ketones NEGATIVE NEGATIVE Urine Nitrite NEGATIVE NEGATIVE Urine Bilirubin NEGATIVE NEGATIVE Urine Urobilinogen 0.2 < = 1.0 MG/DL Urine Leukocyte Esterase NEGATIVE NEGATIVE Urine RBC (Auto) NEGATIVE NEGATIVE Urine RBC 0-2 /HPF Urine WBC 0-2 /HPF Urine Squamous Epithelial Cells 5-10 /HPF Urine Crystals NONE /LPF Urine Bacteria NEGATIVE /HPF Urine Casts PRESENT /LPF Urine Hyaline Casts 5-10 H /LPF Urine Mucus SMALL H /LPF Urine Culture Indicated NO Sodium Level 139 135-145 MMOL/L Potassium Level 3.7 3.6-5.0 MMOL/L Chloride Level 105 98-107 MMOL/L Carbon Dioxide Level 21 21-32 MMOL/L Anion Gap 13 5-14 MMOL/L Blood Urea Nitrogen 25 H 7-18 MG/DL Creatinine 1.09 0.60-1.30 MG/DL Estimat Glomerular Filtration Rate 49 BUN/Creatinine Ratio 23 Glucose Level 126 H 70-105 MG/DL Lactic Acid Level 1.49 0.50-2.00 MMOL/L Calcium Level 8.0 L 8.5-10.1 MG/DL Corrected Calcium 8.7 8.5-10.1 MG/DL Total Bilirubin 0.8 0.1-1.0 MG/DL Aspartate Amino Transf (AST/SGOT) 23 5-34 U/L Alanine Aminotransferase (ALT/SGPT) 24 0-55 U/L Alkaline Phosphatase 81 40-136 U/L Troponin I < 0.30 <0.30 NG/ML C-Reactive Protein 4.00 H <0.50 MG/DL Total Protein 5.8 L 6.4-8.2 GM/DL Albumin 3.1 L 3.2-4.5 GM/DL My Orders Orders - ANALISA MARADIAGA MD Monitor-Rhythm Ecg Trace Only (06/01/20 12:49) Cbc With Automated Diff (06/01/20 12:49) Comprehensive Metabolic Panel (06/01/20 12:49) Crp Fs (06/01/20 12:49) Troponin I Fs (06/01/20 12:49) Lactic Acid Analyzer (06/01/20 12:49) Ekg Tracing (06/01/20 12:49) Ns Iv 1000 Ml (Sodium Chloride 0.9%) (06/01/20 13:00) O2 (06/01/20 12:49) Ua Culture If Indicated (06/01/20 12:51) Manual Differential (06/01/20 13:10) Orthostatic Vital Signs (Adult (06/01/20 14:04) Ns Iv 1000 Ml (Sodium Chloride 0.9%) (06/01/20 14:15) Vital Signs/I&O 06/01/20 06/01/20 06/01/20 06/01/20 12:28 12:50 14:09 16:54 Temp 36.2 Pulse 96 93 81 105 85 117 97 Resp 23 B/P (MAP) 128/64 (85) 146/61 (89) 148/62 (90) 140/89 (106) 148/84 (105) 159/96 (117) 133/64 (87) Pulse Ox 97 94 O2 Delivery Non Rebreather Nasal Cannula O2 Flow Rate 15.00 4.00 06/01/20 18:00 Pulse 81 Resp 23 B/P (MAP) 148/84 Pulse Ox 95 O2 Delivery Nasal Cannula O2 Flow Rate 3.00 Capillary Refill : Less Than 3 Seconds Blood Pressure Mean: 85 Progress Note #1: Progress Note check labs and urine. Give IV fluids for hydration. Check orthostatic vital signs as she had near syncopal episode with sliding out of her chair. Progress Note #2: Progress Note labs are stable from discharge. She has no findings of a UTI. Her lactic acid is not elevated. She did have orthostatic changes and a second liter of normal saline was ordered. She will be checked again after the second liter infuses. Progress Note #3: Progress Note patient improved after second liter normal saline. Orthostatic vital signs are improved as well. She denies being as dizzy with standing. Discussed with the patient about going home versus admitted to the hospital with transition to inpatient rehabilitation with Dr. Arias. Patient wished to go back home and continue to push fluids. It was stressed that she needed to make sure she was drinking a lot of fluid versus just drinking a couple cups of coffee. After discussion with Dr. Arias pt was advised she could still be brought to inpatient rehab unit if she found that things were not working out at home in the next day or two. Departure Impression Primary Impression: Dehydration Additional Impressions: Near syncope COVID-19 virus infection Hypoxia Disposition: HOME, SELF-CARE Condition: Improved Departure-Patient Inst. Decision time for Depature: 16:54 Referrals: TEETEE HOOKS MD (PCP/Family) Primary Care Physician Patient Instructions: Syncope (Fainting) (DC), Coronavirus Disease 2019 (COVID- 19) Overview, Coronavirus Disease 2019 (COVID-19) (DC), Dehydration, Adult (DC) Add. Discharge Instructions: Make sure you are drinking plenty of water and staying well hydrated to help with your dizziness and prevent further fainting episodes. Use your oxygen at all times. Make sure you take your time and give yourself a chance to adjust and catch your breath and your dizziness to improve when you are changing positions. Slowly go from lying to sitting and wait a few minutes to give yourself a chance to adjust. Then stand and again give yourself a chance to adjust before you start walking. If your symptoms just keep getting worse or you are unable to get along at home you could check back with Dr. Arias to see about getting in with the rehab unit at [facility] Tuesday or Tuesday. All discharge instructions reviewed with patient and/or family. Voiced understanding. ANALISA MARADIAGA MD Jun 01, 2020 13:15
[2020-06-01 13:43] LABS: ALANINE AMINOTRANSFERASE 24 U/L (0-55); ALKALINE PHOSPHATASE 81 U/L (40-136); BILIRUBIN,TOTAL 0.8 MG/DL (0.1-1.0); BUN/CREATININE RATIO 23; CARBON DIOXIDE 21 MMOL/L (21-32); CHLORIDE 105 MMOL/L (98-107); CREATININE SERUM 1.09 MG/DL (0.60-1.30); GFR ESTIMATED 49; GLUCOSE 126 MG/DL (70-105); POTASSIUM 3.7 MMOL/L (3.6-5.0); SODIUM 139 MMOL/L (135-145)
[2020-06-01 13:44] LABS: ALBUMIN 3.1 GM/DL (3.2-4.5); TOTAL PROTEIN 5.8 GM/DL (6.4-8.2)
[2020-06-01 13:45] LABS: BACTERIA,URINE NEGATIVE /HPF; BILIRUBIN,URINE NEGATIVE (NEGATIVE); CLARITY,URINE CLEAR; COLOR,URINE DARK YELLOW; GLUCOSE, URINE (UA) NEGATIVE (NEGATIVE); KETONES,URINE NEGATIVE (NEGATIVE); LEUKOCYTE ESTERASE ,URINE NEGATIVE (NEGATIVE); NITRITE,URINE NEGATIVE (NEGATIVE); PROTEIN,URINE NEGATIVE (NEGATIVE); RBC,URINE 0-2 /HPF; WBC,URINE 0-2 /HPF
[2020-06-01 13:46] LABS: HEMOGLOBIN 10.3 G/DL (11.5-16.0); MEAN CORPUSCULAR HEMOGLOBIN 30 PG (25-34); WHITE BLOOD COUNT 11.9 10^3/uL (4.3-11.0)
[2020-06-01 13:47] LABS: BASOPHILS % (AUTO) 0 % (0-10); EOSINOPHILS % (AUTO) 0 % (0-10); HEMATOCRIT 31 % (35-52); LYMPHOCYTES # (AUTO) 0.9 X 10^3 (1.0-4.0); LYMPHOCYTES % (AUTO) 8 % (12-44); MEAN CORPUSCULAR HGB CONC 33 G/DL (32-36); MEAN CORPUSCULAR VOLUME 89 FL (80-99); MEAN PLATELET VOLUME 8.8 FL (7.4-10.4); MONOCYTES # (AUTO) 0.7 X 10^3 (0.0-1.0); MONOCYTES % (AUTO) 6 % (0-12); NEUTROPHILS # (AUTO) 10.1 X 10^3 (1.8-7.8); NEUTROPHILS % (AUTO) 85 % (42-75); PLATELET COUNT 390 10^3/uL (130-400)
[2020-06-01 13:52] LABS: ATYPICAL LYMPHOCYTES 3 %; BAND NEUTROPHILS 7 %; BASOPHILS % (MANUAL) 0 %; EOSINOPHILS % (MANUAL) 0 %; HYPOCHROMASIA 1+; LYMPHOCYTES % (MANUAL) 5 %; MONOCYTES % (MANUAL) 4 %; NEUTROPHILS % (MANUAL) 81 %
[2020-06-01 14:09] VITALS: BP_SYST 140; BP_SYST 146; BP_SYST 159; BP_DIAS 61; BP_DIAS 89; BP_DIAS 96
[2020-06-01 16:54] VITALS: BP_SYST 133; BP_SYST 148; BP_DIAS 62; BP_DIAS 64; BP_DIAS 84
[2020-06-01 18:00] VITALS: BP 148/84
== END 2020-06-01 18:01 | disposition home or self-care (01) ==
LOC: EDUNIT# 12:12 → ER FS 12:13
DX: E86.0 Dehydration (principal); R55 Syncope and collapse; U07.1 COVID-19; R09.02 Hypoxemia; I25.2 Old myocardial infarction; Z95.5 Presence of coronary angioplasty implant and graft; Z88.5 Allergy status to narcotic agent; Z86.718 Personal history of other venous thrombosis and embolism; Z86.711 Personal history of pulmonary embolism; Z79.01 Long term (current) use of anticoagulants
CPT/HCPCS: 36415; 80053; 81000; 83605; 84484; 85007; 85027; 86141; 93005; 93041

== ENCOUNTER → 2020-06-02 | Outpatient (CLI) | payer OTHER, MEDICARE | LOC: LABNPT 15:42 | PROVIDERS: ATTEND Nurse Practitioner Family | DX: Z01.89 Encounter for other specified special examinations (principal) | CPT/HCPCS: 84145 ==